=== PATIENT | male | born 1960 | race African-American/Black ===

== ENCOUNTER 2019-12-25 10:45 | Day surgery (SDC) | payer OTHER ==
[~2019-12-25 10:45] MED LIST: LIDOCAINE MPF (2%) 20 MG/1 ML VIAL 5 ML ONE; propofoL 200 MG/20 ML VIAL IV ONE
[2019-12-25] MEDS ORDERED: SODIUM CHLORIDE 0.9% 1000 ML 1,000 ML IV SCH (11:15)
[2019-12-25] MEDS ORDERED: propofoL 200 MG/20 ML VIAL IV ONE (11:40)
--- NOTE | 2019-12-25 11:49 | Anesthesia Day of Surgery ---
Anesthesia Day of Surgery - Day of Surgery Patient Examined: Yes Patient H&P Reviewed: Yes Patient is NPO: Yes Beta Blockers: No Cardiac Clearance: No Pulmonary Clearance: No Davey's Test: N/A
--- NOTE | 2019-12-25 11:53 | Anesthesia Consultation ---
Anesthesia Consult and Med Hx Date of service: 12/25/19 - Airway Anesthetic Teeth Evaluation: Good ROM Head & Neck: Adequate Mental/Hyoid Distance: Adequate Mallampati Class: Class II Intubation Access Assessment: Good - Pulmonary Exam CTA: Yes - Cardiac Exam Cardiac Exam: RRR - Pre-Operative Health Status ASA Pre-Surgery Classification: ASA2 Proposed Anesthetic Plan: General - Pulmonary Hx Smoking: No Hx Respiratory Symptoms: No - Cardiovascular System Hx Hypertension: No Hx Coronary Artery Disease: No - Central Nervous System Hx Neuromuscular Disorder: No - Gastrointestinal Hx Ulcer: Yes (h/o colectomy and appendectomy) - Endocrine Hx Renal Disease: No - Hematic Hx Anemia: No - Additional Comments Anesthesia Medical History Comments: c/o abd pain, rectal bleeding
[2019-12-25] MEDS ORDERED: EPINEPHrine 1:10,000 1 MG/10 ML SYRINGE ONE (12:08)
--- NOTE | 2019-12-25 12:39 | Short Stay Summary ---
Short Stay Documentation Date of service: 12/25/19 Narrative H&P: The patient presents for evaluation of abdominal pain, recent hematochezia and an abnormal CT scan revealing mucosal edema of the colon. - History Past Medical History: No medical history Past Surgical History: appendectomy Social history: no significant social history, , lives with family - Allergies and Medications Current Medications: Allergies No Known Allergies Allergy (Verified 12/25/19 11:14) Home Medications Medication Instructions Recorded Confirmed Last Taken Type RX: No Known Home Medications [No 12/25/19 12/25/19 Unknown History Reported Home Medications] Active Medications Sodium Chloride (Nacl 0.9% 1000 Ml) 1,000 mls @ 50 mls/hr IV DIRECT NAVYA Last Admin: 12/25/19 11:46 Dose: 50 mls/hr Documented by: - Physical exam General appearance: no acute distress, well-nourished Integumentary: no rash, no growths, no abnormal pigmentation HEENT: Atraumatic, PERRLA, EOMI, Mucous membr. moist/pink Lungs: Clear to auscultation Breasts: deferred Heart: Regular rate, Normal S1, Normal S2, No murmurs Gastrointestinal: normoactive bowel sounds, no tenderness, no distended, no masses, no guarding, no organomegaly, no obese Male Genitourinary: deferred Rectal Exam: normal exam-external/orifice, no tenderness, no hemorrhoids, no mass Extremities: no ischemia, pulses intact, pulses symmetrical, No edema, normal temperature, normal color, Full ROM Neurological: Normal gait, Normal speech, Strength at 5/5 X4 ext, Normal tone, Sensation intact, Cranial nerves 3-12 NL - Brief post op/procedure progress note Date of procedure: 12/25/19 Findings: see dictation Estimated blood loss: minimal Pathology: list (1. Cecal polyp 2. Two ascending colon polyps) Specimen disposition: to lab Condition: stable - Disposition Condition at discharge: Good Disposition: DC-[id number] TO HOME OR SELFCARE - Discharge Diagnoses (1) Hematochezia Status: Acute (2) Abnormal CT of the abdomen Status: Acute (3) Lower abdominal pain Status: Acute Short Stay Discharge Plan Activity: other (no NSAIDS for 7 days, no driving for 24 hours) Weight Bearing Status: Full Weight Bearing Diet: regular Follow up with: PRIMARY CARE, [Primary Care Provider] - 7 Days
--- NOTE | 2019-12-25 12:45 | Operative Report ---
Operative Report Operative Report: Date of procedure: 12/25/2019 Preprocedure diagnosis: Recent lower abdominal pain, hematochezia and an abnorm al CT scan of the abdomen revealing diffusely thickened, edematous colon Post procedure diagnosis: 1 cecal polyp and 2 ascending colon polyps. Procedure: Colonoscopy to the cecum with snare cautery removal of the cecal polyp and 1 of the ascending colon polyps. The larger a sending colon polyp was removed by injection of epinephrine and a large stalk followed by snare cautery resection and retrieval. Endoscopist: Dr. Miller Anesthesia: Monitored anesthesia care per anesthesia department Estimated blood loss: 0 Medications: Monitored anesthesia care. See separate report by anesthesia for details. After careful discussion of the nature and purpose of the procedure as well as details of the technique risks benefits and alternatives the patient gave consent. Please see recent history and physical from the office. The patient was placed in the left lateral decubitus position and medicated per anesthesia. A rectal exam was performed sphincter tone was normal there were no masses palpable. The Erbix - Beetux Softw[employer] 570 scope was passed transanally and advanced under continuous direct vision without difficulty to the cecum. The colon was well prepared. The cecum revealed and 8 mm semi-pedunculated polyp. The polyp was removed with snare electrocautery and retrieved via suction. Two ascending colon polyps were found. The smallest of which was approximately 1.2 cm in size. This was semi- pedunculated and removed with the snare electrocautery followed by retrieval via suction. A second, larger polyp in the ascending colon was present and had a thick stalk. This polyp was approximately 2 cm in size and it was elected to inject the stalk with 1 mL of 1-10,000 epinephrine followed by snare cautery removal. No bleeding was encountered. This polyp was removed by withdrawal of the scope with the polyp adhered to the tip by suction. The ascending colon was otherwise normal. The transverse colon, descending colon, and sigmoid colon were normal. The rectum was normal on forward and retroflexed views. The procedure was well-tolerated overall and the patient was observed in recovery. Conclusions: 1 Cecal polyp, 2 Ascending polyp, largest 2 cm in size. Plan: Await pathology. The patient will call the office in 1 week. Repeat colonoscopy in 3 years if there is no high-grade dysplasia. Earlier study according to pathology, if needed Signed electronically: Tanner Miller M.D.
[2019-12-25 13:28] VITALS: BP 120/83
== END 2019-12-25 13:28 | disposition home or self-care (01) ==
LOC: GIO 10:45
PROVIDERS: ATTEND Internal Medicine Gastroenterology
DX: K92.1 Melena (principal); D12.0 Benign neoplasm of cecum; D12.2 Benign neoplasm of ascending colon; R10.30 Lower abdominal pain, unspecified; R93.5 Abnormal findings on diagnostic imaging of other abdominal regions, including retroperitoneum; Z90.49 Acquired absence of other specified parts of digestive tract; Z79.899 Other long term (current) drug therapy
CPT/HCPCS: 45381; 45385; 88305; J0171; J2704; J7030